=== PATIENT | female | born 1975 | race Caucasian/White ===

== ENCOUNTER → 2023-12-06 | Day surgery (SDC) | payer BC ==
[~2023-12-06] MED LIST: LIDOCAINE HCL/EPINEPHRINE 1%-EPI 1:100,000 20 ML VIAL ONE; SODIUM BICARBONATE 4% (2.4MEQ) 5ML VIAL IV ONE
== END | disposition home or self-care (01) ==
LOC: EDSTATUS 09:24 → RAD 09:54
PROVIDERS: ATTEND Surgery
DX: N63.24 Unspecified lump in the left breast, lower inner quadrant (principal); Z79.899 Other long term (current) drug therapy
CPT/HCPCS: 88305; 19083; J3490 ×2; A4648